=== PATIENT | male | born 1985 | race Caucasian/White ===

== ENCOUNTER 2018-11-16 09:57 | Emergency (ER) | payer MEDICAID, OTHER ==
[~2018-11-16] VITALS: Ht 172.7 cm; Wt 81.8 kg
[~2018-11-16 09:57] MED LIST: CLON-371 PO; DULO20CA50 PO
[2018-11-16 10:02] VITALS: BP 119/77
== END 2018-11-16 10:12 | disposition home or self-care (01) ==
LOC: ER 09:58
DX: Z02.89 Encounter for other administrative examinations (principal); G89.29 Other chronic pain; K21.9 Gastro-esophageal reflux disease without esophagitis; F41.9 Anxiety disorder, unspecified; F32.9 Major depressive disorder, single episode, unspecified; F17.210 Nicotine dependence, cigarettes, uncomplicated; Z79.899 Other long term (current) drug therapy
CPT/HCPCS: 99281